=== PATIENT | female | born 1950 | race Caucasian/White ===

== ENCOUNTER 2017-10-12 08:51 | Inpatient (IN) | payer MEDICARE, OTHER ==
[~2017-10-12] VITALS: Ht 172.7 cm; Wt 107.0 kg
[~2017-10-12 08:51] MED LIST: BACITRACIN 50,000 UNIT ONE; BUPIVACAINE/PF 0.5% ONE; EPINEPHRINE 1 MG/ML, 1ML ONE; THROMBIN 20,000 UNIT VIAL TP ONE
[2017-10-12] MEDS ORDERED: LACTATED RINGERS 1,000 ML IV SCH (09:21)
[2017-10-12] MEDS ORDERED: AMLO5TAB2 PO (09:23)
[2017-10-12] MEDS ORDERED: CARV25TA12 PO (09:30)
[2017-10-12] MEDS ORDERED: OMEP-110 PO (09:30)
[2017-10-12] MEDS ORDERED: LIDOCAINE 1%, 2ML SQ PRN (09:30)
[2017-10-12] MEDS ORDERED: LIPA1CAP45 PO (09:30)
[2017-10-12] MEDS ORDERED: PLEASE ENTER HEIGHT AND WEIGHT MC SCH (09:30)
[2017-10-12] MEDS ORDERED: LOVA20TA2 PO (09:30)
[2017-10-12] MEDS ORDERED: HYDR25TA6 PO (09:30)
[2017-10-12 09:33] VITALS: BP 154/90
[2017-10-12] MEDS ORDERED: KETAMINE 10 MG/ML, 20ML ONE (10:21)
[2017-10-12] MEDS ORDERED: MIDAZOLAM 1 MG/ML, 2ML ONE (10:22)
[2017-10-12] MEDS ORDERED: FENTANYL PF 100 MCG/2ML ONE ×3 (10:22→13:46)
[2017-10-12] MEDS ORDERED: REMIFENTANIL 2 MG ONE ×2 (10:22→12:32)
[2017-10-12] MEDS ORDERED: EPHEDRINE 50 MG/ML, 1ML ONE (11:03)
[2017-10-12] MEDS ORDERED: DEXAMETHASONE 4 MG/ML, 1ML ONE (11:03)
[2017-10-12] MEDS ORDERED: PROPOFOL 10 MG/ML, 50ML ONE (11:03)
[2017-10-12] MEDS ORDERED: ROCURONIUM 10 MG/ML,10ML ONE (11:03)
[2017-10-12] MEDS ORDERED: ONDANSETRON 2MG/ML, 2ML ONE (11:03)
[2017-10-12] MEDS ORDERED: PROPOFOL 10 MG/ML, 20ML ONE (11:03)
[2017-10-12] MEDS ORDERED: SUCCINYLCHOLINE 20 MG/ML, 10ML ONE (11:03)
[2017-10-12] MEDS ORDERED: CEFAZOLIN 1,000 MG ONE (11:03)
[2017-10-12] MEDS ORDERED: BUPIVACAINE/PF 0.5% INFIL ONE (11:55)
[2017-10-12] MEDS ORDERED: EPINEPHRINE 1 MG/ML, 1ML INFIL ONE (11:56)
[2017-10-12] MEDS ORDERED: BACITRACIN 50,000 UNIT IRRIG ONE (11:57)
[2017-10-12] MEDS ORDERED: THROMBIN 20,000 UNIT VIAL TP ONE (11:57)
[2017-10-12] MEDS ORDERED: ACETAMINOPHEN 325 MG TABLET PO PRN (12:30)
[2017-10-12] MEDS ORDERED: PROMETHAZINE 25 MG/ML, 1ML IV PRN (12:30)
[2017-10-12] MEDS ORDERED: MEPERIDINE/PF 25MG/0.5ML IVPush PRN (12:30)
[2017-10-12] MEDS ORDERED: DIAZEPAM 5 MG/ML, 2ML IVPush PRN (12:30)
[2017-10-12] MEDS ORDERED: OXYcodone 5 MG/5 ML ORAL.SOL UDC PO PRN (12:30)
[2017-10-12] MEDS ORDERED: PROPOFOL 50 ML ONE (12:38)
[2017-10-12] MEDS ORDERED: OXYcodone 5 MG/5 ML ORAL.SOL UDC ONE (13:46)
[2017-10-12] MEDS ORDERED: HYDROmorphone 1 MG/ML, 1ML ONE (13:46)
[2017-10-12] MEDS ORDERED: ACETAMINOPHEN 650 MG/20.3 ML UDC ONE (13:46)
[2017-10-12] MEDS: HYDROmorphone 1 MG/ML, 1ML IV PRN ×2 (14:03→14:24)
[2017-10-12] MEDS: FENTANYL PF 100 MCG/2ML IV PRN ×2 (14:14→14:41)
[2017-10-12 15:25] VITALS: BP 122/71
[2017-10-12] MEDS ORDERED: MAGNESIUM HYDROXIDE 8%, 30ML UDC PO PRN (16:00)
[2017-10-12] MEDS ORDERED: PROMETHAZINE 25 MG/ML, 1ML IM PRN (16:00)
[2017-10-12] MEDS ORDERED: LABETALOL 5MG/ML, 20ML IV PRN (16:00)
[2017-10-12] MEDS ORDERED: morphine SULFATE 10 MG/ML, 1ML IV PRN (16:00)
[2017-10-12] MEDS ORDERED: BISACODYL 10 MG SUPP PR PRN (16:00)
[2017-10-12] MEDS ORDERED: ONDANSETRON 2MG/ML, 2ML IV PRN (16:00)
[2017-10-12] MEDS: LIPASE/PROTEASE/AMYLASE TAB PO SCH (17:00)
[2017-10-12] MEDS ORDERED: DIAZEPAM 5 MG/ML, 10ML VIAL IVPush ONE (17:00)
[2017-10-12] MEDS: OXYcodone/APAP 10/325MG TABLET PO PRN ×3 (17:42→22:20)
[2017-10-12] MEDS: NS + 20MEQ KCL 1,000 ML IV SCH (17:43)
[2017-10-12] MEDS: CARVEDILOL 25 MG TABLET PO SCH (17:44)
[2017-10-12] MEDS: CEFAZOLIN PMX 1GM/50ML 50 ML IVPB SCH (18:21)
[2017-10-12 18:46] VITALS: BP 110/60
[2017-10-12] MEDS: METHOCARBAMOL 750 MG TABLET PO PRN (19:44)
[2017-10-12 20:53] VITALS: BP 109/66
[2017-10-12 20:55] VITALS: BP 110/65
[2017-10-12] MEDS ORDERED: AMLODIPINE 5 MG TABLET PO SCH (21:00)
[2017-10-12] MEDS ORDERED: LOVASTATIN 20 MG TABLET PO SCH (21:00)
[2017-10-13 00:18] VITALS: BP 119/73
[2017-10-13] MEDS: OXYcodone/APAP 10/325MG TABLET PO PRN ×3 (01:51→10:55)
[2017-10-13] MEDS: CEFAZOLIN PMX 1GM/50ML 50 ML IVPB SCH (02:42)
[2017-10-13 04:52] VITALS: BP 111/58
[2017-10-13] MEDS: CARVEDILOL 25 MG TABLET PO SCH (05:49)
[2017-10-13] MEDS: METHOCARBAMOL 750 MG TABLET PO PRN ×2 (05:49→14:09)
[2017-10-13] MEDS: NS + 20MEQ KCL 1,000 ML IV SCH (06:24)
[2017-10-13] MEDS ORDERED: OMEPRAZOLE 20 MG CAPSULE.DR PO SCH (07:30)
[2017-10-13 08:00] VITALS: BP 138/64
[2017-10-13] MEDS ORDERED: HYDROCHLOROTHIAZIDE 25 MG TABLET PO SCH (09:00)
[2017-10-13] MEDS ORDERED: AMLODIPINE 5 MG TABLET PO SCH (09:00)
[2017-10-13] MEDS ORDERED: SENNA/DOCUSATE TABLET PO SCH (09:00)
[2017-10-13] MEDS: LIPASE/PROTEASE/AMYLASE TAB PO SCH ×2 (09:03→13:07)
[2017-10-13] MEDS ORDERED: OXYC-307 PO (13:49)
[2017-10-13] MEDS ORDERED: METH750T87 PO (13:49)
[2017-10-13] MEDS ORDERED: SENN1TAB7 PO (13:50)
== END 2017-10-13 14:27 | disposition home or self-care (01) | DRG 519 ==
LOC: OUT 08:51 → 4NOR 15:21 → OUT 15:25 → 4NOR 15:25 → DCLOUNGE 10-13 14:13
PROVIDERS: ADMIT Neurological Surgery; ATTEND Neurological Surgery
PROC: 00Q20ZZ Repair Dura Mater, Open Approach (ICD-10-PCS; 2017-10-12)
PROC: 01NB0ZZ Release Lumbar Nerve, Open Approach (ICD-10-PCS; 2017-10-12)
PROC: 4A11X4G Monitoring of Peripheral Nervous Electrical Activity, Intraoperative, External Approach (ICD-10-PCS; 2017-10-12)
PROC: 0SB20ZZ Excision of Lumbar Vertebral Disc, Open Approach (ICD-10-PCS; principal; 2017-10-12 11:00)
DX: M51.16 Intervertebral disc disorders with radiculopathy, lumbar region (principal); G96.0 Cerebrospinal fluid leak; G96.11 Dural tear; M54.32 Sciatica, left side
CPT/HCPCS: 72100; J0171; J0690; J1100; J1170; J2250; J2405; J2704; J3010; J3480; J3490; C1781; J0330; J7120